=== PATIENT | male | born 1945 | race Caucasian/White ===

== ENCOUNTER → 2017-11-11 15:46 | Outpatient (REF) | payer MEDICARE, OTHER, SELFPAY | LOC: LAB 15:46 | PROVIDERS: Visit Provider Internal Medicine | CPT/HCPCS: 87493 ==

== ENCOUNTER → 2019-07-13 10:52 | Outpatient (CLI) | payer MEDICARE, OTHER, SELFPAY ==
[2019-07-13 12:02] LABS: Hemoglobin A1C% w Est Avg Glu 7.6 % (4.0-6.0)
[2019-07-13 12:06] LABS: Alanine Aminotransferase 15 IU/L (<50); Albumin 4.2 g/dL (3.5-5.0); Albumin Globulin Ratio 1.5 (1.0-2.8); Alkaline Phosphatase 127 U/L (38-126); Aspartate Aminotransferase 17 IU/L (17-59); Bilirubin Total 0.7 mg/dL (0.2-1.3); Blood Urea Nitrogen 16 mg/dL (9-20); Calcium 9.7 mg/dL (8.4-10.2); Carbon Dioxide 26 mmol/L (22-32); Chloride 100 mmol/L (98-107); Cholesterol 116 mg/dL (140-199); Estimated Glomerular Filt Rate > 60.0 mL/min (>60); Globulin 2.8 g/dL (1.7-4.1); Glucose 196 mg/dL (80-110); HDL Cholesterol 42 mg/dL (40-60); HEMOLYSIS < 15 (0-50); LDL Cholesterol Calculated 50 mg/dL (<100); Potassium 4.3 mmol/L (3.4-5.1); Sodium 139 mmol/L (137-145); Triglycerides 120 mg/dL (35-150)
[2019-07-13 12:36] LABS: Prostate Specific Antigen 3.46 ng/mL (0.10-4.00)
[2019-07-13 14:48] LABS: Creatinine Urine Random 33.8 mg/dL
[2019-07-13 14:54] LABS: Microalbumi Creatinin Ratio Ur 62.1 ug/mg CR (<30); Microalbumin Urine Random 2.1 mg/dL (0-1.6)
== END ==
PROVIDERS: Visit Provider Family Medicine
DX: Z12.5 Encounter for screening for malignant neoplasm of prostate (principal); Z13.1 Encounter for screening for diabetes mellitus; Z13.220 Encounter for screening for lipoid disorders; E11.9 Type 2 diabetes mellitus without complications
CPT/HCPCS: 36415; 80053; 80061; 82043; 82570; 83036; 84153; G0103

== ENCOUNTER → 2020-01-17 10:40 | Outpatient (CLI) | payer MEDICARE, OTHER, SELFPAY ==
[2020-01-17 12:15] LABS: Hemoglobin A1C% w Est Avg Glu 8.3 % (4.0-6.0)
[2020-01-17 12:21] LABS: Alanine Aminotransferase 24 IU/L (<50); Albumin 4.7 g/dL (3.5-5.0); Albumin Globulin Ratio 1.5 (1.0-2.8); Alkaline Phosphatase 94 U/L (38-126); Aspartate Aminotransferase 34 IU/L (17-59); BUN Creatinine Ratio 18.8 (6-22); Bilirubin Total 0.8 mg/dL (0.2-1.3); Blood Urea Nitrogen 16 mg/dL (9-20); Calcium 8.9 mg/dL (8.4-10.2); Carbon Dioxide 20 mmol/L (22-32); Chloride 101 mmol/L (98-107); Estimated Glomerular Filt Rate > 60.0 mL/min (>60); Globulin 3.2 g/dL (1.7-4.1); Glucose 165 mg/dL (80-110); Potassium 4.3 mmol/L (3.4-5.1); Sodium 134 mmol/L (137-145); Total Protein 7.9 g/dL (6.3-8.2)
[2020-01-17 12:35] LABS: HEMOLYSIS 71 (0-50)
== END ==
PROVIDERS: PCP Family Medicine; Referring Provider Family Medicine; Visit Provider Family Medicine
DX: E11.9 Type 2 diabetes mellitus without complications (principal); E78.5 Hyperlipidemia, unspecified
CPT/HCPCS: 36415; 80053; 83036

== ENCOUNTER → 2020-04-28 10:42 | Outpatient (CLI) | payer MEDICARE, OTHER, SELFPAY ==
[2020-04-28 12:17] LABS: Alanine Aminotransferase 24 IU/L (<50); Albumin 4.4 g/dL (3.5-5.0); Albumin Globulin Ratio 1.3 (1.0-2.8); Alkaline Phosphatase 120 U/L (38-126); Aspartate Aminotransferase 26 IU/L (17-59); BUN Creatinine Ratio 17.9 (6-22); Bilirubin Total 0.7 mg/dL (0.2-1.3); Blood Urea Nitrogen 15 mg/dL (9-20); Calcium 9.3 mg/dL (8.4-10.2); Carbon Dioxide 27 mmol/L (22-32); Chloride 99 mmol/L (98-107); Estimated Glomerular Filt Rate > 60.0 mL/min (>60); Globulin 3.4 g/dL (1.7-4.1); Glucose 207 mg/dL (80-110); HEMOLYSIS < 15 (0-50); Potassium 4.4 mmol/L (3.4-5.1); Sodium 134 mmol/L (137-145); Total Protein 7.8 g/dL (6.3-8.2)
[2020-04-28 13:12] LABS: Hemoglobin A1C% w Est Avg Glu 8.3 % (4.0-6.0)
== END ==
PROVIDERS: PCP Family Medicine; Referring Provider Family Medicine; Visit Provider Family Medicine
DX: E11.9 Type 2 diabetes mellitus without complications (principal)
CPT/HCPCS: 36415; 80053; 83036

== ENCOUNTER → 2020-05-02 14:26 | Outpatient (CLI) | payer MEDICARE, OTHER, SELFPAY ==
[2020-05-02 15:53] LABS: Hemoglobin A1C% w Est Avg Glu 8.4 % (4.0-6.0)
== END ==
PROVIDERS: PCP Family Medicine; Referring Provider Family Medicine; Visit Provider Family Medicine
DX: E11.9 Type 2 diabetes mellitus without complications (principal)
CPT/HCPCS: 36415; 83036

== ENCOUNTER 2020-06-19 15:59 | Emergency (ER) | payer MEDICARE, OTHER, SELFPAY ==
[2020-06-19] VITALS (9 sets, daily range): BP systolic 156–200; BP diastolic 72–83; PULSE 71–96; RESP 19–37; TEMP 36.6; O2SAT 94–98; BMI 39.1
--- NOTE | 2020-06-19 16:08 | DI.RAD.S_ITS ---
PROCEDURE: XR RIBS LT MIN 3V W CXR1V INDICATIONS: left chest wall pain, s/p fall, bruise, on antiplatelets TECHNIQUE: 2 views of the left ribs were acquired, along with a single view chest. COMPARISON: None. FINDINGS: Surgical changes and devices: None. Bones and chest wall: No fractures or dislocations. Specifically, no definite acute, displaced rib fractures identified. No suspicious bony lesions. Overlying soft tissues appear unremarkable. Lungs and pleura: No pleural effusions or pneumothorax. Lungs appear clear. Mediastinum: Mediastinal contours appear normal. Heart size is normal. IMPRESSION: 1. Chest without acute cardiopulmonary abnormalities. 2. No definite acute displaced rib fractures visualized. Dictated by: Aneudy Antonio M.D. on 06/19/2020 at 17:30 Approved by: Aneudy Antonio M.D. on 06/19/2020 at 17:40
--- NOTE | 2020-06-19 16:16 | PC.NURSE ---
Patient difficult historian. Present to ED for swelling in bilateral ankles. States this started approximately one week ago. While changing patient into gown patient states don't mind the bruise on my side. Large amount of bruising noted under left arm on chest. Patient reports mechanical fall approximately one week ago. Denies pain to this area or difficulty breathing. Left chest palpated and noted to be hard mass. Patient states the swelling in ankles started approximately the same time as his home medication of Metformin was doubled. Patient also brings in a home medication and allergy list, metformin listed under allergies with adverse reaction of ankle swelling. Provider aware of all findings.
[2020-06-19 16:17] LABS: Add Manual Diff / Slide Review NO; Basophils Absolute Auto 0 /uL (0-100); Basophils Percent Auto 0.5 % (0-2); Eosinophils Absolute Auto 100 /uL (0-450); Eosinophils Percent Auto 0.9 % (2-4); Hematocrit 41.1 % (41-53); Hemoglobin 14.1 g/dL (13.5-17.5); Lymphocytes Absolute Auto 900 /uL (1100-4500); Lymphocytes Percent Auto 12.5 % (25-40); Mean Corpuscular HGB Conc 34.4 % (30-36); Mean Corpuscular Hemoglobin 29.1 PG (26-34); Mean Corpuscular Volume 84.6 fL (80-100); Monocytes Absolute Auto 600 /uL (0-900); Monocytes Percent Auto 8.1 % (3-14); Neutrophils Absolute Auto 5800 /uL (1500-7000); Platelet Count 334 X10^3/uL (150-400); Red Blood Cell Count 4.85 X10^6/uL (4.5-5.9); Red Cell Distribution Width 14.7 % (11.6-14.8); White Blood Cell Count 7.4 X10^3/uL (4.5-11.0)
[2020-06-19 16:29] LABS: INR 1.1 (0.9-1.3); Prothrombin Time 12.6 SECONDS (10.1-12.7)
[2020-06-19 16:32] LABS: PTT Partial Thromboplastin Tim 32 SECONDS (26.4-36.2)
--- NOTE | 2020-06-19 16:32 | ED_ITS ---
HPI - Extremity Problem <PUMA Street - Last Filed: 06/19/20 19:56> General Chief complaint: Extremity Problem,Nontraumatic Stated complaint: Allergic Reaction / Swollen Feet Time Seen by Provider: 06/19/20 16:03 Source: patient Mode of arrival: Ambulatory Limitations: no limitations History of Present Illness HPI Narrative: This is a 75-year-old male, nonsmoker, who has past medical history significant for diabetes, hypertension, BPH, stroke who is currently taking Plavix presents to ED with chief complain of a full allergy reaction to metformin. Patient reports he has been taking metformin but recently increased to double dose and is taking 1000 mg at night once a day since then he noticed swelling to bilateral foot worse in left with pressure-like discomfort. Patient denies history of blood clots, calf pain, chest pain, dyspnea, recent surgery, history of tumors, fever, chills, nausea or vomiting, or history of DVTs. Spouse states patient usually sits on a chair most of the days but does exercise. Patient denies oropharyngeal swelling, difficulty swallowing. Patient states in the past when he used metformin with other medication had experience redness to his foot. Patient denies history of heart failure or skin injury to lower extremities. Patient also reports had fall on to left chest about a week ago after accidentally tripped. He uses a cane for mobility. Patient reports left chest wall discomfort after he was picked up by his son-in-law and daughter after the fall. Bruise was appreciated by nurses when he was assisted into a gown. Related Data Home Medications Medication Instructions Recorded Confirmed Glucometer #1 ea 06/22/19 05/02/20 Test Strips #1 ea 06/22/19 05/02/20 TruePlus Lancets MIS 336 #1 ea 06/22/19 05/02/20 acetaminophen 325 mg capsule 325 mg PO ONCE PRN 06/22/19 05/02/20 baclofen 5 mg tablet 5 mg PO TID tab 06/22/19 05/02/20 docusate sodium 100 mg capsule 100 mg PO BID 06/22/19 05/02/20 loratadine 10 mg tablet 10 mg PO DAILY 06/22/19 05/02/20 nystatin TOP DAILY 06/22/19 05/02/20 sennosides 8.6 mg capsule 8.6 mg PO BID PRN 06/22/19 05/02/20 sodium chloride 1 gram tablet 1,000 mg PO DAILY PRN tab 06/22/19 05/02/20 Previous Rx's Medication Instructions Recorded clopidogrel 75 mg tablet See Rx Instructions .ROUTE 01/14/20 .COMPLEX #90 tab losartan 100 mg tablet See Rx Instructions .ROUTE 01/15/20 .COMPLEX #90 tab amlodipine 5 mg tablet 5 mg PO DAILY #90 tab 01/21/20 atorvastatin 40 mg tablet 40 mg PO DAILY #90 tab 01/21/20 glimepiride 4 mg tablet 4 mg PO BID #180 tab 01/21/20 metoprolol tartrate 100 mg tablet 100 mg PO DAILY #90 tab 01/21/20 sertraline 100 mg tablet 100 mg PO DAILY #90 tab 01/21/20 tamsulosin 0.4 mg capsule 0.8 mg PO DAILY #180 cap 01/21/20 tizanidine 4 mg tablet 4 mg PO BEDTIME #90 tab 01/21/20 blood sugar diagnostic #100 each 05/02/20 lancets 33 gauge #100 each 05/02/20 omeprazole 20 mg capsule,delayed 20 mg PO DAILY #90 cap 05/02/20 release metformin 1,000 mg tablet,extended 1,000 mg PO DAILY #90 tab 06/04/20 release 24hr pioglitazone 15 mg tablet 15 mg PO DAILY #30 tab 06/04/20 furosemide [Lasix] 20 mg PO DAILY 3 Days #3 tab 06/19/20 lidocaine 1 patch TOPICAL DAILY PRN #30 ea 06/19/20 potassium chloride 10 meq PO DAILY #3 tab 06/19/20 Allergies Allergy/AdvReac Type Severity Reaction Status Date / Time metformin Allergy Severe legs Verified 06/19/20 16:07 turned red pioglitazone [From Actos] Allergy Severe lower Verified 06/19/20 16:07 extremity swelling Review of Systems <PUMA Street - Last Filed: 06/19/20 19:56> Review of Systems Narrative: General: Denies fever, chills, fatigue, malaise, sweats. HEENT: Denies sinus pain, ear pain, sore throat, difficulty swallowing, dizziness. Respiratory: Denies dyspnea, cough, wheezing, hemoptysis, sputum. Cardiovascular: Denies chest pain, palpitations, orthopnea, (+) bilateral foot edema worse in left. Gastrointestinal: Denies nausea, vomiting, abdominal pain, diarrhea, constipation, melena. : Denies dysuria, (+) frequency and history of BPH, incontinence, hematuria, urinary retention. Musculoskeletal: See HPI Skin: See HPI Neurologic: Denies weakness, headache, numbness, change in speech, confusion, seizures, incoordination. Psychiatric: No concerning psychosocial issues. 12-point review of systems is negative except for those stated above. Patient History <PUMA Street - Last Filed: 06/19/20 19:56> Medical History (Updated 06/19/20 @ 19:[address]) Ankle pain (~2018) Depression (~2007) Dry skin Foot pain (~2018) History of CVA (cerebrovascular accident) Hyperlipidemia Hypertension Mumps Stroke Vision disorder Surgical History H/O angioplasty H/O cataract removal with insertion of prosthetic lens Family History (Updated 07/07/19 @ 20:10 by Christiana Langford) Father Cancer Mother Dementia Grandfather Ulcer Grandmother Stroke Grandfather History of heart disease Social History Smoking Status: Never smoker second hand exposure: No alcohol intake: current (4 oz wine every 3 months) substance use type: does not use Smoking Status: Never smoker alcohol intake frequency: holidays/special occasions only Substance Use Type: does not use Exam <PUMA Street - Last Filed: 06/19/20 19:56> Narrative Exam Narrative: GEN: Alert, oriented x 3, obese, and in no acute distress. Head: Normal cephalic, atraumatic. No scalp or temporal tenderness, palpable mass or rash. EYES: Pupils are equal, round, and reactive to light and accommodation. There is no subconjunctival hemorrhage, exudate and sclera non-icteric. ENT: Hearing grossly intact. Nose without bleeding, purulent discharge or deviation. Mucous membrane moist, no mucosal lesion. Throat without erythema, tonsillar hypertrophy or exudate. Uvula in midline, airway patent. Neck: Trachea in midline. No JVD, non-tender without lymphadenopathy. No masses or thyroid megaly. Supple, non-tender and no meningeal signs. CARDIAC: Normal regular rate and rhythm without murmurs, gallops, or rubs. chest wall tenderness to palpate in left chest. Ecchymosis and light yellowish bruise in left chest without crepitus or step-offs. Bilateral foot edema 2+ worse in left foot. No cyanosis or pallor. Capillary refill is less than 2 seconds. RESPIRATORY: Lungs are clear to auscultate bilaterally. No cough, wheezes, rales, or rhonchi. No stridor, respiratory distress, increase work of breathi ng, or accessary muscle used. ABD: Abdomen soft, nontender and non-distended. No guarding or rebound tenderness to palpate. Bowel sounds are normal in all 4 quadrants. There is no palpable masses or organomegaly. EXT: Full painless ROM of all extremities with no loss of sensation, strength, effusion. No calf pain to palpate. Skin cool to touch and slightly erythematous. Intact pulses and sensation. SKIN: Warm, dry, normal color for patient. No erythema, lesions or rash over visible areas. See extremity exam. BACK: Nontender without deformity or crepitance. No flank tenderness. NEUROLOGICAL: Alert and oriented to place, time and person. Sensation and motor function intact bilaterally. No facial droops, dysphasia. PSYCHIATRIC: Good judgement and reason, without hallucinations, abnormal affect or abnormal behaviors during the examination. Patient is not suicidal. Initial Vital Signs Initial Vital Signs: Vital Signs Temperature 97.9 F 06/19/20 16:00 Pulse Rate 86 06/19/20 16:00 Respiratory Rate 19 06/19/20 16:00 Blood Pressure 200/81 H 06/19/20 16:00 Pulse Oximetry 98 06/19/20 16:00 <Ulysses Camacho DO - Last Filed: 06/20/20 07:07> Initial Vital Signs Initial Vital Signs: Vital Signs Temperature 97.9 F 06/19/20 16:00 Pulse Rate 86 06/19/20 16:00 Respiratory Rate 19 06/19/20 16:00 Blood Pressure 200/81 H 06/19/20 16:00 Pulse Oximetry 98 06/19/20 16:00 Scores <PUMA Street - Last Filed: 06/19/20 19:56> GCS Solo coma scale eye opening: Spontaneous Solo coma scale verbal response: Orientated Trish coma scale motor response: Obey commands Trish coma scale total score: 15 PERC Score Age greater than or equal to 50 years: Yes Heart rate greater than or equal to 100 bpm: No Room Air O2 Sat less than 95%: No Unilateral leg swelling: No Recent trauma or surgery: No Hemoptysis: No Prior PE or DVT: No Hormone Use: No Total PERC Score: 1 qSOFA Altered Mental Status (GCS <15): No Respiratory rate greater than/equal to 22: No Systolic blood pressure less than or equal to 100: No qSOFA Total: 0 0-1 Not High Risk 1-3 High risk Wells' Criteria for DVT Active Cancer (Treatment within 6 months): No Bedridden recently >3 days or major surgery within 4 weeks: No Calf Swelling >3cm compared to other leg: No Collateral (nonvericose) superficial veins present: No Entire leg swollen: No Localized tenderness along the deep vein system: No Pitting edema, confined to symtomatic leg: Yes Paralysis, paresis, or recent plaster immobilization of ext: No Previously documented DVT: No Alternative dx to DVT as likely or more likely: Yes Wells' criteria for DVT: -1 Course <[address] - Last Filed: 06/19/20 19:56> Orders Ordered: Discontinued Medications Acetaminophen (Acetaminophen 325 Mg Tablet) 650 mg PO NOW ONE Stop: 06/19/20 18:07 Last Admin: 06/19/20 18:11 Dose: 650 mg Documented by: NITA Furosemide (Furosemide 40 Mg/4 Ml Vial) 20 mg IV NOW ONE Stop: 06/19/20 17:42 Last Admin: 06/19/20 18:12 Dose: 20 mg Documented by: SHELBIARTIN Lidocaine (Lidocaine Patch 1 Each Adh..Patch) 1 each TOP NOW ONE Stop: 06/19/20 18:07 Last Admin: 06/19/20 18:11 Dose: 1 each Documented by: NITA Vital Signs Vital signs: Vital Signs - 8 hr 06/19/20 16:00 06/19/20 16:02 06/19/20 16:30 Temperature 97.9 F Pulse Rate 86 83 71 Respiratory Rate 19 23 Blood Pressure 200/81 H 200/81 H 163/72 H Pulse Oximetry 98 97 94 06/19/20 17:19 06/19/20 17:20 06/19/20 17:46 Temperature Pulse Rate 76 75 84 Respiratory Rate 20 20 37 H Blood Pressure 174/81 H 178/83 H Pulse Oximetry 98 97 96 06/19/20 18:00 06/19/20 18:30 06/19/20 18:55 Temperature Pulse Rate 96 H 87 92 H Respiratory Rate 24 24 30 H Blood Pressure 156/82 H Pulse Oximetry 95 96 96 <Ulysses Camacho DO - Last Filed: 06/20/20 07:07> Orders Ordered: Discontinued Medications Acetaminophen (Acetaminophen 325 Mg Tablet) 650 mg PO NOW ONE Stop: 06/19/20 18:07 Last Admin: 06/19/20 18:11 Dose: 650 mg Documented by: NITA Furosemide (Furosemide 40 Mg/4 Ml Vial) 20 mg IV NOW ONE Stop: 06/19/20 17:42 Last Admin: 06/19/20 18:12 Dose: 20 mg Documented by: NITA Lidocaine (Lidocaine Patch 1 Each Adh..Patch) 1 each TOP NOW ONE Stop: 06/19/20 18:07 Last Admin: 06/19/20 18:11 Dose: 1 each Documented by: NITA Vital Signs Vital signs: Vital Signs - 8 hr 06/19/20 16:00 06/19/20 16:02 06/19/20 16:30 Temperature 97.9 F Pulse Rate 86 83 71 Respiratory Rate 19 23 Blood Pressure 200/81 H 200/81 H 163/72 H Pulse Oximetry 98 97 94 06/19/20 17:19 06/19/20 17:20 06/19/20 17:46 Temperature Pulse Rate 76 75 84 Respiratory Rate 20 20 37 H Blood Pressure 174/81 H 178/83 H Pulse Oximetry 98 97 96 06/19/20 18:00 06/19/20 18:30 06/19/20 18:55 Temperature Pulse Rate 96 H 87 92 H Respiratory Rate 24 24 30 H Blood Pressure 156/82 H Pulse Oximetry 95 96 96 MDM - Extremity (Nontraumatic) <PUMA Street - Last Filed: 06/19/20 19:56> Differential Diagnosis Differential diagnosis: Likely cellulitis, deep vein thrombosis of lower extremity and other (Rib fracture, rib contusion, venous insufficiency, heart failure) Medical Records Attestation: I reviewed the patient's medical records. Lab Data Attestation: I reviewed the patient's lab results. Result diagrams: 06/19/20 16:10 06/19/20 16:10 Labs: Lab Results 06/19/20 06/19/20 06/19/20 Range/Units 16:10 16:10 16:10 WBC 7.4 (4.5-11.0) X10^3/uL RBC 4.85 (4.5-5.9) X10^6/uL Hgb 14.1 (13.5-17.5) g/dL Hct 41.1 (41-53) % MCV 84.6 (80-100) fL MCH 29.1 (26-34) PG MCHC 34.4 (30-36) % RDW 14.7 (11.6-14.8) % Plt Count 334 (150-400) X10^3/uL Neut % (Auto) 78.0 H (50-75) % Lymph % (Auto) 12.5 L (25-40) % [place] % (Auto) 8.1 (3-14) % Eos % (Auto) 0.9 L (2-4) % Baso % (Auto) 0.5 (0-2) % Neut # (Auto) 5800 (6373-1718) /uL Lymph # (Auto) 900 L (4966-4170) /uL [place] # (Auto) 600 (0-900) /uL Eos # (Auto) 100 (0-450) /uL Baso # (Auto) 0 (0-100) /uL PT 12.6 (10.1-12.7) SECONDS INR 1.1 (0.9-1.3) APTT 32 (26.4-36.2) SECONDS D-Dimer (<230) ng/mL Sodium 135 L (137-145) mmol/L Potassium 3.9 (3.4-5.1) mmol/L Chloride 98 (98-107) mmol/L Carbon Dioxide 27 (22-32) mmol/L BUN 14 (9-20) mg/dL Creatinine 0.80 (0.66-1.25) mg/dL Estimated GFR > 60.0 (>60) mL/min BUN/Creatinine Ratio 17.5 (6-22) Glucose 265 H (80-110) mg/dL Calcium 9.4 (8.4-10.2) mg/dL Total Bilirubin 0.7 (0.2-1.3) mg/dL AST 23 (17-59) IU/L ALT 22 (<50) IU/L Alkaline Phosphatase 162 H (38-126) U/L Total Creatine Kinase 36 L (55-170) U/L CK-MB (CK-2) TNP CK-MB (CK-2) Rel Index TNP Troponin I < 0.012 (0.01-0.034) ng/mL NT-Pro-B Natriuret Pep 237 (<450) pg/mL Total Protein 7.9 (6.3-8.2) g/dL Albumin 4.5 (3.5-5.0) g/dL Globulin 3.4 (1.7-4.1) g/dL Albumin/Globulin Ratio 1.3 (1.0-2.8) Lipase 87 (23-300) U/L 06/19/ Range/Units 16:10 WBC (4.5-11.0) X10^3/uL RBC (4.5-5.9) X10^6/uL Hgb (13.5-17.5) g/dL Hct (41-53) % MCV (80-100) fL MCH (26-34) PG MCHC (30-36) % RDW (11.6-14.8) % Plt Count (150-400) X10^3/uL Neut % (Auto) (50-75) % Lymph % (Auto) (25-40) % [place] % (Auto) (3-14) % Eos % (Auto) (2-4) % Baso % (Auto) (0-2) % Neut # (Auto) (2531-3364) /uL Lymph # (Auto) (4673-0182) /uL [place] # (Auto) (0-900) /uL Eos # (Auto) (0-450) /uL Baso # (Auto) (0-100) /uL PT (10.1-12.7) SECONDS INR (0.9-1.3) APTT (26.4-36.2) SECONDS D-Dimer 211 (<230) ng/mL Sodium (137-145) mmol/L Potassium (3.4-5.1) mmol/L Chloride (98-107) mmol/L Carbon Dioxide (22-32) mmol/L BUN (9-20) mg/dL Creatinine (0.66-1.25) mg/dL Estimated GFR (>60) mL/min BUN/Creatinine Ratio (6-22) Glucose (80-110) mg/dL Calcium (8.4-10.2) mg/dL Total Bilirubin (0.2-1.3) mg/dL AST (17-59) IU/L ALT (<50) IU/L Alkaline Phosphatase (38-126) U/L Total Creatine Kinase (55-170) U/L CK-MB (CK-2) CK-MB (CK-2) Rel Index Troponin I (0.01-0.034) ng/mL NT-Pro-B Natriuret Pep (<450) pg/mL Total Protein (6.3-8.2) g/dL Albumin (3.5-5.0) g/dL Globulin (1.7-4.1) g/dL Albumin/Globulin Ratio (1.0-2.8) Lipase (23-300) U/L Urine Dip Bedside Urine Glucose 250 mg/dl Bedside Urine Bilirubin - Negative Bedside Urine Ketone - Negative Urine Specific [place] 1.015 Bedside Urine Occult Blood - Negative Bedside Urine pH 6.0 Bedside Urine Protein - Negative Bedside Urine Urobilinogen - Negative Bedside Urine Nitrite - Negative Bedside Urine Leukocytes - Negative Esterase ECG Data Attestation EKG: I personally reviewed and interpreted this ECG as follows: Prior ECG tracings: available for review Interpretation: Normal sinus rhythm rate at 75 with 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 Left [place]. [place] interval 166, QRS duration 152, QT/QTC 422/[address] changes Previous EKG without history of right bundle-branch or left anterior fascicular block MDM Narrative Medical decision making narrative: Modified Trauma initiated for left chest wall contusion and bruise from a fall about a week ago after accidentally tripped and patient is currently taking antiplatelet-Plavix for history of stroke. This is a 75-year-old gentleman who presents to ED with bilateral foot swelling which is worse on left side after he started up the dose of metformin from 500 mg to 1000 mg for diabetes. In the past patient had experience redness developing after taking the metformin without other medications. Wells criteria for DVT score 1 and PERC score 1. D-dimer score was negative for age-adjusted level. D dimer today is 211. Assuring that patient has bilateral foot swelling, it is unlikely to have DVT on bilateral foot/legs. No leukocytosis with WBC of 7.4. Physical exam on bilateral lower extremity does not appreciate warmth to palpate. Mild erythema and edema to bilateral foot worse in left-sided. Physical exam is not quite consistent with cellulitis. Concerned for heart failure, there is a EKG change today with right bundle branch and left anterior fascicular block without acute ST changes. ProBNP was negative as 237 with negative cardiac enzymes. Alkaline phosphatase mildly elevated to 162 today. Nonfasting serum glucose up to 265. Sodium 135 and spouse reports patient is currently taking salt tabs. Normal coag test results. Urine test no indications for infection. Patient called few times to use urinal and has history of BPH. Bladder scan shows approximately 400 mL of urine in bladder. Patient had difficult time voiding in be but was able to void when assisted to standing up. Chest and rib x-ray does not show acute findings such as fractures without acute cardiopulmonary abnormality. Patient treated with 20 mg of Lasix IV or peripheral edema which could be dependent edema since the patient is mostly sitting on a chair during days. Advised to use compression stockings and elevate his legs during rest. Patient discharged to home with 3 additional daily of 20 mg of Lasix with 10 mEq of potassium since patient had hypokalemia in the past with Lasix use. Advised to use [id number] Tylenol and lidocaine patch as needed for discomfort in left chest wall discomfort. Information shared with his daughter Nettie over the phone and advised to follow up with PCP next week Tuesday or Tuesday. Return precautions were discussed with patient and spouse. Advised to discussed taking metformin 500 mg twice a day instead of 1000 mg once a day as other option. Patient and spouse verbalized understanding in agreement with treatment plan. <Ulysses Camacho, DO - Last Filed: 06/20/20 07:07> Lab Data Labs: Lab Results 06/19/20 06/19/20 06/19/20 Range/Units 16:10 16:10 16:10 WBC 7.4 (4.5-11.0) X10^3/uL RBC 4.85 (4.5-5.9) X10^6/uL Hgb 14.1 (13.5-17.5) g/dL Hct 41.1 (41-53) % MCV 84.6 (80-100) fL MCH 29.1 (26-34) PG MCHC 34.4 (30-36) % RDW 14.7 (11.6-14.8) % Plt Count 334 (150-400) X10^3/uL Neut % (Auto) 78.0 H (50-75) % Lymph % (Auto) 12.5 L (25-40) % [place] % (Auto) 8.1 (3-14) % Eos % (Auto) 0.9 L (2-4) % Baso % (Auto) 0.5 (0-2) % Neut # (Auto) 5800 (9477-9212) /uL Lymph # (Auto) 900 L (7816-6761) /uL [place] # (Auto) 600 (0-900) /uL Eos # (Auto) 100 (0-450) /uL Baso # (Auto) 0 (0-100) /uL PT 12.6 (10.1-12.7) SECONDS INR 1.1 (0.9-1.3) APTT 32 (26.4-36.2) SECONDS D-Dimer (<230) ng/mL Sodium 135 L (137-145) mmol/L Potassium 3.9 (3.4-5.1) mmol/L Chloride 98 (98-107) mmol/L Carbon Dioxide 27 (22-32) mmol/L BUN 14 (9-20) mg/dL Creatinine 0.80 (0.66-1.25) mg/dL Estimated GFR > 60.0 (>60) mL/min BUN/Creatinine Ratio 17.5 (6-22) Glucose 265 H (80-110) mg/dL Calcium 9.4 (8.4-10.2) mg/dL Total Bilirubin 0.7 (0.2-1.3) mg/dL AST 23 (17-59) IU/L ALT 22 (<50) IU/L Alkaline Phosphatase 162 H (38-126) U/L Total Creatine Kinase 36 L (55-170) U/L CK-MB (CK-2) TNP CK-MB (CK-2) Rel Index TNP Troponin I < 0.012 (0.01-0.034) ng/mL NT-Pro-B Natriuret Pep 237 (<450) pg/mL Total Protein 7.9 (6.3-8.2) g/dL Albumin 4.5 (3.5-5.0) g/dL Globulin 3.4 (1.7-4.1) g/dL Albumin/Globulin Ratio 1.3 (1.0-2.8) Lipase 87 (23-300) U/L 12/10/20 Range/Units 16:10 WBC (4.5-11.0) X10^3/uL RBC (4.5-5.9) X10^6/uL Hgb (13.5-17.5) g/dL Hct (41-53) % MCV (80-100) fL MCH (26-34) PG MCHC (30-36) % RDW (11.6-14.8) % Plt Count (150-400) X10^3/uL Neut % (Auto) (50-75) % Lymph % (Auto) (25-40) % [place] % (Auto) (3-14) % Eos % (Auto) (2-4) % Baso % (Auto) (0-2) % Neut # (Auto) (4215-2218) /uL Lymph # (Auto) (3147-7824) /uL [place] # (Auto) (0-900) /uL Eos # (Auto) (0-450) /uL Baso # (Auto) (0-100) /uL PT (10.1-12.7) SECONDS INR (0.9-1.3) APTT (26.4-36.2) SECONDS D-Dimer 211 (<230) ng/mL Sodium (137-145) mmol/L Potassium (3.4-5.1) mmol/L Chloride (98-107) mmol/L Carbon Dioxide (22-32) mmol/L BUN (9-20) mg/dL Creatinine (0.66-1.25) mg/dL Estimated GFR (>60) mL/min BUN/Creatinine Ratio (6-22) Glucose (80-110) mg/dL Calcium (8.4-10.2) mg/dL Total Bilirubin (0.2-1.3) mg/dL AST (17-59) IU/L ALT (<50) IU/L Alkaline Phosphatase (38-126) U/L Total Creatine Kinase (55-170) U/L CK-MB (CK-2) CK-MB (CK-2) Rel Index Troponin I (0.01-0.034) ng/mL NT-Pro-B Natriuret Pep (<450) pg/mL Total Protein (6.3-8.2) g/dL Albumin (3.5-5.0) g/dL Globulin (1.7-4.1) g/dL Albumin/Globulin Ratio (1.0-2.8) Lipase (23-300) U/L Urine Dip Bedside Urine Glucose 250 mg/dl Bedside Urine Bilirubin - Negative Bedside Urine Ketone - Negative Urine Specific [place] 1.015 Bedside Urine Occult Blood - Negative Bedside Urine pH 6.0 Bedside Urine Protein - Negative Bedside Urine Urobilinogen - Negative Bedside Urine Nitrite - Negative Bedside Urine Leukocytes - Negative Esterase Discharge Plan Departure Patient Disposition: Home Clinical Impression: Leg edema Diabetes Qualifiers: Diabetes mellitus type: type 2 Diabetes mellitus longshore equipment operator insulin use: unspecified halfway insulin use status Diabetes mellitus complication status: with other specified complication Qualified Code(s): E11.69 - Type 2 diabetes mellitus with other specified complication Chest wall contusion Qualifiers: Encounter type: initial encounter Laterality: left Qualified Code(s): S20.212A - Contusion of left front wall of thorax, initial encounter Instructions: DI for Diabetes Type 2, DI for Contusion, DI for Peripheral Edema -- Bilateral Activity Restrictions/Additional Instructions: You have been diagnosed with [peripheral edema worsen left foot. Labs are assuring. No indications for cellulitis, heart failure, or DVT. Your blood sugar was elevated. Discussed with Dr. Bond if you can take metformin 500 mg twice a day instead of once and night. Please take Lasix once a day for next 3 days for leg swelling which is diuretic. Please take potassium 10 mEq once a day for next 3 days with Lasix if you tend to lose potassium easily. Compression stocking helps with leg swelling as well.]. What to do: *Take your medications as directed. *Follow up with your primary care provider in 2-3 days, call for an appointment. Let them know you were seen in the ED and that we asked you to be seen in follow up. *Return to ED if you have any new, worsening, or concerning symptoms, such as [chest pain, breathing difficulty, fever, worsening symptoms, calf pain and swelling, warmth to your legs, unable to tolerate fluids or any acute concerns.]. Prescriptions: New potassium chloride 10 mEq tablet extended release 10 meq PO DAILY Qty: 3 RF: 0 furosemide [Lasix] 20 mg tablet 20 mg PO DAILY 3 Days Qty: 3 RF: 0 lidocaine 5 % adhesive patch,medicated 1 patch topical DAILY PRN (Reason: Chest wall pain) Qty: 30 RF: 0 No Action clopidogrel 75 mg tablet See Rx Instructions .ROUTE .COMPLEX Qty: 90 RF: 2 losartan 100 mg tablet See Rx Instructions .ROUTE .COMPLEX Qty: 90 RF: 2 pioglitazone [Actos] 15 mg tablet 15 mg PO DAILY Qty: 30 RF: 2 metformin 1,000 mg tablet extended release 24hr 1,000 mg PO DAILY Qty: 90 RF: 3 baclofen 5 mg tablet 5 mg PO TID RF: 0 loratadine [Allergy Relief (loratadine)] 10 mg tablet 10 mg PO DAILY RF: 0 sodium chloride 1 gram tablet 1,000 mg PO DAILY PRNRF: 0 senna 8.6 mg capsule 8.6 mg PO BID PRNRF: 0 docusate sodium 100 mg capsule 100 mg PO BID RF: 0 nystatin TOP DAILY RF: 0 acetaminophen [Tylenol] 325 mg capsule 325 mg PO ONCE PRNRF: 0 (DME) Glucometer Qty: 1 RF: 0 (DME) TruePlus Lancets MIS 336 100 per box Qty: 1 RF: 0 (DME) Test Strips 100 Qty: 1 RF: 0 tamsulosin 0.4 mg capsule 0.8 mg PO DAILY Qty: 180 RF: 1 tizanidine 4 mg tablet 4 mg PO BEDTIME Qty: 90 RF: 1 atorvastatin 40 mg tablet 40 mg PO DAILY Qty: 90 RF: 2 sertraline 100 mg tablet 100 mg PO DAILY Qty: 90 RF: 1 glimepiride 4 mg tablet 4 mg PO BID Qty: 180 RF: 1 amlodipine 5 mg tablet 5 mg PO DAILY Qty: 90 RF: 1 metoprolol tartrate 100 mg tablet 100 mg PO DAILY Qty: 90 RF: 1 (DME) Blood Glucose Test Strip See Rx Instructions .ROUTE .MEDSUPPLY Qty: 100 RF: 5 (DME) lancets [BD Ultra Fine Lancets] 33 gauge misc See Rx Instructions .ROUTE .MEDSUPPLY Qty: 100 RF: 5 omeprazole 20 mg capsule,delayed release(DR/EC) 20 mg PO DAILY Qty: 90 RF: 3 Referrals: Idris Bond DO [Primary Care Provider] - <Ulysses Camacho DO - Last Filed: 06/20/20 07:07> Cosign ED Attending Cosignature Attestation: Dr Camacho Co-Sign Statement: I was available for consultation during this patient's emergency department visit. This chart is signed by myself for administrative purposes only. I did not have direct contact with this patient during this visit. They were seen independently by the APC.
[2020-06-19 16:35] LABS: Alanine Aminotransferase 22 IU/L (<50); Albumin 4.5 g/dL (3.5-5.0); Albumin Globulin Ratio 1.3 (1.0-2.8); Alkaline Phosphatase 162 U/L (38-126); Aspartate Aminotransferase 23 IU/L (17-59); BUN Creatinine Ratio 17.5 (6-22); Bilirubin Total 0.7 mg/dL (0.2-1.3); Blood Urea Nitrogen 14 mg/dL (9-20); Calcium 9.4 mg/dL (8.4-10.2); Carbon Dioxide 27 mmol/L (22-32); Chloride 98 mmol/L (98-107); Creatine Kinase 36 U/L (55-170); Estimated Glomerular Filt Rate > 60.0 mL/min (>60); Globulin 3.4 g/dL (1.7-4.1); Glucose 265 mg/dL (80-110); HEMOLYSIS < 15 (0-50); Lipase 87 U/L (23-300); Potassium 3.9 mmol/L (3.4-5.1); Sodium 135 mmol/L (137-145); Total Protein 7.9 g/dL (6.3-8.2)
[2020-06-19 16:46] LABS: NT-proBNP (BNP-Adult 18+) 237 pg/mL (<450); Troponin I < 0.012 ng/mL (0.01-0.034)
[2020-06-19] MEDS: LIDOCAINE PATCH 1 EACH ADH..PATCH TOP (18:11)
[2020-06-19] MEDS: ACETAMINOPHEN 325 MG TABLET 650 MG PO (18:11)
[2020-06-19] MEDS: FUROSEMIDE 40 MG/4 ML VIAL 20 MG IV (18:12)
[2020-06-19 18:23] LABS: D Dimer 211 ng/mL (<230)
== END 2020-06-19 19:16 | disposition home or self-care (01) ==
PROVIDERS: Emergency Provider Nurse Practitioner Family; PCP Family Medicine
DX: R60.0 Localized edema (principal); E11.69 Type 2 diabetes mellitus with other specified complication; S20.212A Contusion of left front wall of thorax, initial encounter; W19.XXXA Unspecified fall, initial encounter; I10 Essential (primary) hypertension; N40.0 Benign prostatic hyperplasia without lower urinary tract symptoms; R07.89 Other chest pain; E78.5 Hyperlipidemia, unspecified; Z86.73 Personal history of transient ischemic attack (TIA), and cerebral infarction without residual deficits
CPT/HCPCS: 36415; 51798; 71101; 80053; 81003; 82550; 83690; 83880; 84484; 85025; 85379; 85610; 85730; 93005; 96374; 99284; J1940

== ENCOUNTER → 2020-11-03 11:48 | Outpatient (CLI) | payer MEDICARE, OTHER, SELFPAY ==
[2020-11-03 13:12] LABS: Hemoglobin A1C% w Est Avg Glu 8.3 % (4.0-6.0)
[2020-11-03 13:56] LABS: Alanine Aminotransferase 18 IU/L (<50); Albumin 4.1 g/dL (3.5-5.0); Albumin Globulin Ratio 1.3 (1.0-2.8); Alkaline Phosphatase 128 U/L (38-126); Aspartate Aminotransferase 19 IU/L (17-59); BUN Creatinine Ratio 22.3 (6-22); Bilirubin Total 0.4 mg/dL (0.2-1.3); Blood Urea Nitrogen 29 mg/dL (9-20); Calcium 10.2 mg/dL (8.4-10.2); Carbon Dioxide 21 mmol/L (22-32); Chloride 102 mmol/L (98-107); Cholesterol 113 mg/dL (140-199); Estimated Glomerular Filt Rate 53.8 mL/min (>60); Globulin 3.1 g/dL (1.7-4.1); Glucose 190 mg/dL (80-110); HDL Cholesterol 54 mg/dL (40-60); HEMOLYSIS < 15 (0-50); LDL Cholesterol Calculated 38 mg/dL (<100); Potassium 5.2 mmol/L (3.4-5.1); Sodium 134 mmol/L (137-145); Total Protein 7.2 g/dL (6.3-8.2); Triglycerides 104 mg/dL (35-150)
[2020-11-03 14:26] LABS: Prostate Specific Antigen Scrn 4.92 ng/mL (0.1-4.0)
== END ==
PROVIDERS: PCP Family Medicine; Referring Provider Family Medicine; Visit Provider Family Medicine
DX: E11.9 Type 2 diabetes mellitus without complications (principal); I10 Essential (primary) hypertension; E78.5 Hyperlipidemia, unspecified; N40.0 Benign prostatic hyperplasia without lower urinary tract symptoms; Z12.5 Encounter for screening for malignant neoplasm of prostate
CPT/HCPCS: 36415; 80053; 80061; 83036; G0103

== ENCOUNTER → 2023-01-26 16:17 | Outpatient (ROUT) | payer MEDICARE, OTHER, SELFPAY ==
[2023-01-26 17:26] LABS: Clostridium Difficile Tox PCR Negative for C. diff (Negative)
== END ==
PROVIDERS: Visit Provider Nurse Practitioner Family
DX: Z11.2 Encounter for screening for other bacterial diseases (principal)
CPT/HCPCS: 87493